=== PATIENT | female | born 1975 | race Caucasian/White ===

== ENCOUNTER 2021-08-06 07:25 | Emergency (ER) | payer OTHER ==
[~2021-08-06] VITALS: Ht 182.9 cm; Wt 68.0 kg
[2021-08-06 08:28] LABS: ABSOLUTE NEUTROPHILS 4.3 thou/uL (1.4-8.2); BASOPHILS 0.4 % (0.0-2.0); EOSINOPHILS 1.1 % (0.0-3.0); HEMATOCRIT 41.7 % (37.0-47.0); HEMOGLOBIN 14.2 gm/dL (12.0-15.0); LYMPHOCYTES 33.3 % (24.0-44.0); MCH 32.8 pg (26.0-34.0); MCHC 33.9 g/dL (28.0-37.0); MCV 96.6 fL (80.0-100.0); MONOCYTES 6.7 % (1.0-8.0); PLATELET COUNT 216 thou/uL (150-400); POLYS 58.5 % (36.0-66.0); RBC 4.32 mil/uL (4.20-5.00); RDW 13.2 % (10.5-14.5); WBC 7.3 thou/uL (4.0-11.0)
[2021-08-06 08:31] LABS: ANION GAP 9 mmol/L (7-16); BUN 12 mg/dL (7-18); CALCIUM 8.6 mg/dL (8.5-10.1); CHLORIDE 106 mmol/L (98-107); CO2 25 mmol/L (21-32); CREATININE 0.6 mg/dL (0.6-1.0); GLUCOSE 105 mg/dL (74-106); POTASSIUM 3.6 mmol/L (3.5-5.1); SODIUM 140 mmol/L (136-145)
[2021-08-06 08:33] LABS: URINE BILIRUBIN NEGATIVE (Negative); URINE BLOOD TRACE (Negative); URINE CLARITY CLEAR; URINE COLOR YELLOW; URINE GLUCOSE-RANDOM* NEGATIVE (Negative); URINE KETONES NEGATIVE (Negative); URINE LEUKOCYTES-REFLEX TRACE (Negative); URINE NITRITE-REFLEX NEGATIVE (Negative); URINE PROTEIN (DIPSTICK) NEGATIVE (Negative); URINE UROBILINOGEN 0.2 E.U./dl (0.2-1.0)
[2021-08-06 08:41] LABS: ALBUMIN 4.1 g/dL (3.4-5.0); SGOT 14 U/L (15-37); SGPT 20 U/L (14-59); TOTAL BILIRUBIN 0.7 mg/dL (0.2-1.0); TOTAL PROTEIN 7.2 g/dL (6.4-8.2)
[2021-08-06] MEDS ORDERED: MECLIZINE HCL25 MG PO (09:50)
[2021-08-06 10:04] VITALS: BP 112/74
--- NOTE | 2021-08-06 12:27 | EKG ---
[address] [address] ELECTROCARDIOGRAM REPORT Name: ESTEVAN KEENE Room #: DEP Iron#: [id number] Admission: 08/06/21 Attend Phys: Discharge: 08/06/21 Date of : 73 Report #: [id number] [facility] ED Test Date: 2021-08-06 Test Time: 07:32:37 Pat Name: ESTEVAN KEENE Department: Room: Gender: F [employer]': MARTHA : 1975 Requested By: Kelvin Cason Order Number: [id number] MD: Octaviano Bhat Measurements Intervals [place] Rate: 74 P: 65 NC: 157 QRS: 75 QRSD: 94 T: 53 QT: 403 QTc: 448 Interpretive Statements Sinus rhythm Nonspecific ST segment abnormalities No previous ECG available for comparison Electronically Signed On 08-06-2021 12:27:01 [employer] by Octaviano Bhat [email or web address] <ELECTRONICALLY SIGNED> By: Octaviano Bhat MD 08/06/21 1227 0732 0732 Octaviano Bhat MD /EPI
== END 2021-08-06 10:08 | disposition home or self-care (01) ==
LOC: ER 07:25
PROVIDERS: Emergency Medicine
DX: R42 Dizziness and giddiness (principal)